=== PATIENT | male | born 1955 | race Caucasian/White ===

== ENCOUNTER 2021-05-02 15:28 | Observation (INO) ==
[2021-05-02] MEDS ORDERED: Ondansetron ODT 4 MG TAB.RAPDIS SL PRN (19:26)
[2021-05-02] MEDS ORDERED: Melatonin 3 MG TABLET PO PRN (19:26)
[2021-05-02] MEDS ORDERED: Naloxone 0.4 MG/ML INJ IVP PRN (19:26)
[2021-05-02] MEDS ORDERED: Acetaminophen 325 MG TABLET PO PRN (19:26)
[2021-05-02] MEDS ORDERED: Perflutren Lipid Microsphere 1.3 ML in 0.9 % Sodium Chloride 8.7 ML IVP PRN (19:31)
[2021-05-02 20:29] LABS: Hematocrit 36.5 % (37.5-50.1); Hemoglobin 12.4 g/dL (12.9-16.9); Mean Corpuscular Hemoglobin 31.2 pg (28.0-33.3); Mean Corpuscular Volume 91.7 fL (83.0-100.0); Mean Platelet Volume 10.3 fL (9.4-12.4); Platelet Count 277 K/mcL (140-400); Red Blood Count 3.98 M/mcL (4.19-5.50); White Blood Count 8.8 K/mcL (4.3-11.1)
[2021-05-02] MEDS ORDERED: D5% in Water 1,000 ML IVC PRN (20:34)
[2021-05-02] MEDS ORDERED: Dextrose 4 GM Chewable Tablets PO PRN ×2 (20:34)
[2021-05-02] MEDS ORDERED: *HR* Dextrose 50 % in Water (Syg) 50 ML SYRINGE IVP PRN (20:34)
[2021-05-02 20:36] LABS: Estimated Average Glucose 126 mg/dl
[2021-05-02 20:41] LABS: Chol/HDL Ratio 3.4 (0-4.9); Cholesterol 84 mg/dL (< 200); HDL Cholesterol 25 mg/dL (40-59); LDL Cholesterol,Calculated 28 mg/dL (< 100); Magnesium 1.9 mg/dL (1.6-2.6); Phosphorous 3.9 mg/dL (2.7-4.5); Triglycerides 153 mg/dL (< 150)
[2021-05-02 20:42] LABS: BUN/Creatinine Ratio 15 (6-26); Blood Urea Nitrogen 16 mg/dL (8-23); Calcium 8.7 mg/dL (8.6-10.3); Carbon Dioxide 24 mEq/L (23-29); Chloride 107 mEq/L (98-107); Glucose 88 mg/dL (70-105); Osmolality,Calculated 289 (280-300); Potassium 4.2 mEq/L (3.5-5.1); Sodium 139 mEq/L (136-145); Troponin I < 0.03 ng/mL (< 0.04); eGFR For African Americans > 60 (> 60); eGFR For Non-African Americans > 60 (> 60)
[2021-05-02 20:54] LABS: Thyroid Stimulating Hormone 3.233 mcIU/mL (0.340-5.600)
[2021-05-02] MEDS ORDERED: traZODone 50 MG TABLET PO PRN (20:55)
[2021-05-02] MEDS ORDERED: Nitroglycerin 0.4 MG TAB.SUBL SL PRN (20:56)
[2021-05-02] MEDS: 0.9 % Sodium Chloride 1,000 ML IVC SCH (22:58)
[2021-05-02] MEDS: Nicotine 21 MG PATCH.TD24 TD SCH (23:05)
[2021-05-03] MEDS: Insulin LISPRO 300 UNITS/3 ML VIAL SUBQ SCH ×4 (03:31→17:46)
[2021-05-03] MEDS: amLODIPine 5 MG TABLET PO SCH ×2 (03:32→08:36)
[2021-05-03] MEDS: Aspirin 81 MG TAB.CHEW PO SCH (08:36)
[2021-05-03] MEDS: Nicotine 21 MG PATCH.TD24 TD SCH (08:37)
[2021-05-03] MEDS: *HR* OxyCODONE Immed Rel 5 MG TABLET PO PRN (08:38)
[2021-05-03] MEDS ORDERED: Perflutren Lipid Microsphere 1.3 ML in 0.9 % Sodium Chloride 8.7 ML IVP PRN (08:40)
[2021-05-03] MEDS: Isosorbide MONOnitrate (24 HR) 30 MG TAB.ER.24H PO SCH (14:12)
[2021-05-03 17:54] LABS: Estimated Average Glucose 126 mg/dl
[2021-05-03] MEDS ORDERED: Insulin LISPRO 300 UNITS/3 ML VIAL SUBQ SCH (21:00)
[2021-05-03] MEDS: 0.9 % Sodium Chloride 1,000 ML IVC SCH (21:05)
[2021-05-04] MEDS: *HR* OxyCODONE Immed Rel 5 MG TABLET PO PRN ×2 (00:57→08:17)
[2021-05-04] MEDS ORDERED: *HR* Enoxaparin 40 MG/0.4 ML SYRINGE SQ SCH (06:00)
[2021-05-04] MEDS: Nicotine 21 MG PATCH.TD24 TD SCH (08:13)
[2021-05-04] MEDS: Insulin LISPRO 300 UNITS/3 ML VIAL SUBQ SCH ×2 (08:15→12:10)
[2021-05-04] MEDS: amLODIPine 5 MG TABLET PO SCH (08:16)
[2021-05-04] MEDS: Isosorbide MONOnitrate (24 HR) 30 MG TAB.ER.24H PO SCH (08:17)
[2021-05-04] MEDS: Aspirin 81 MG TAB.CHEW PO SCH (08:17)
[2021-05-04] MEDS ORDERED: FLUoxetine 20 MG CAPSULE PO SCH (09:00)
[2021-05-04] MEDS ORDERED: levETIRAcetam 250 MG TABLET PO SCH (09:00)
[2021-05-04] MEDS ORDERED: Pyridoxine (B-6) 50 MG TABLET PO SCH (09:00)
[2021-05-04 11:17] VITALS: BP 139/78; PULSE 60; TEMP 97.6; O2SAT 93
== END 2021-05-04 14:05 | disposition home or self-care (01) ==
LOC: 3BNU → SUATTDRO 18:45
PROVIDERS: ADMIT Hospitalist; ATTEND Internal Medicine